=== PATIENT | male | born 1945 | race Caucasian/White ===

== ENCOUNTER 2016-06-17 22:17 | Emergency (ER) | payer MEDICARE ==
[~2016-06-17] VITALS: Ht 172.7 cm; Wt 90.0 kg
[2016-06-17 22:19] VITALS: BP 130/73; PULSE 81; RESP 18; TEMP 97.6; O2SAT 94
[2016-06-17] MEDS ORDERED: DOXY1CAP74 PO (22:29)
[2016-06-17] MEDS ORDERED: LOSA50TA PO (22:29)
[2016-06-17] MEDS ORDERED: CARV12.5 PO (22:29)
[2016-06-17] MEDS ORDERED: ASPI1TAB69 PO (22:29)
[2016-06-17 22:51] VITALS: RESP 20; O2SAT 96
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
[2016-06-17] MEDS ORDERED: SODIUM CHLORIDE 0.9% FLUSH 5 ML FLUSH IVF PRN (23:00)
[2016-06-17] MEDS ORDERED: RESP: LIDOCAINE HCL 4% PF 5 ML NEB NEB ONE (23:00)
[2016-06-17] MEDS ORDERED: methylPREDNISolone SOD SUCC 125 MG/2 ML VIAL IVP ONE (23:00)
--- NOTE | 2016-06-17 23:12 | RADRPT ---
EXAM DATE/TIME: 06/17/2016 22:56 [facility] COMPARISON: No previous studies available for comparison. INDICATIONS : Cough, shortness of breath for 1 month MEDICAL HISTORY : None. SURGICAL HISTORY : None. ENCOUNTER: Initial ACUITY: 1 month PAIN SCORE: 0/10 LOCATION: Bilateral chest FINDINGS: A single view of the chest demonstrates the lungs to be symmetrically aerated without evidence of mas s, infiltrate or effusion. The cardiomediastinal contours are unremarkable. Osseous structures are intact. CONCLUSION: No evidence of acute cardiopulmonary disease. Navid Rapp MD on June 17, 2016 at 23:09 Board Certified Radiologist. This report was verified electronically.
[2016-06-17 23:39] LABS: AUTOMATED NEUTROPHIL # 7.9 TH/MM3 (1.8-7.7); BASOPHIL # 0.1 TH/MM3 (0-0.2); BASOPHIL % 0.5 % (0.0-2.0); EOSINOPHIL # 0.5 TH/MM3 (0-0.4); EOSINOPHIL % 4.4 % (0.0-4.0); HEMO FLAGS DIFF FINAL; MEAN CELL VOLUME 85.1 FL (80.0-100.0); MEAN CORPUSCULAR HEMOGLOBIN 28.2 PG (27.0-34.0); MEAN CORPUSCULAR HGB CONC 33.2 % (32.0-36.0); MONO % 6.4 % (0.0-8.0); NEUT % 70.7 % (16.0-70.0); PLATELET COUNT 205 TH/MM3 (150-450); RED CELL DISTRIBUTION WIDTH 13.2 % (11.6-17.2); WHITE BLOOD COUNT 11.1 TH/MM3 (4.0-11.0)
[2016-06-17] MEDS: RESP: ALBUTEROL 2.5 MG/IPRATROPIUM 0.5 MG NEB (SCH) INH ×2 (23:41→23:43)
[2016-06-17 23:42] VITALS: O2SAT 96
[2016-06-18] MEDS ORDERED: PRED-503 PO (00:29)
[2016-06-18] MEDS ORDERED: ALBU0.08 NEB (00:29)
[2016-06-18] MEDS ORDERED: GUAI100S5 PO (00:29)
[2016-06-18] MEDS ORDERED: VENTAER INH (00:29)
[2016-06-18 01:29] LABS: ALT (GPT) 24 U/L (12-78); ANION GAP 7 MEQ/L (5-15); AST (GOT) 16 U/L (15-37); BLOOD UREA NITROGEN 13 MG/DL (7-18); CHLORIDE 104 MEQ/L (98-107); GLOMERULAR FILTRATION RATE 82 ML/MIN (>89); MAGNESIUM 2.4 MG/DL (1.5-2.5); SODIUM (NA) 140 MEQ/L (136-145)
[2016-06-18 01:33] LABS: ALKALINE PHOSPHATASE 117 U/L (45-117); TOTAL BILIRUBIN ADULT 0.4 MG/DL (0.2-1.0)
[2016-06-18 01:35] LABS: CREATINE KINASE 50 U/L (39-308)
[2016-06-18] MEDS ORDERED: HYDROcodone 5 MG/HOMATROPINE 1.5 MG SYRUP 5 ML CUP PO ONE (01:45)
[2016-06-18 01:46] VITALS: BP 141/68; TEMP 98.9
--- NOTE | 2016-06-19 06:57 | EKG ---
Date Performed: 06/17/2016 Time Performed: 23:06:51 PTAGE: 71 years EKG: Sinus rhythm NORMAL ECG NO PREVIOUS TRACING DOCTOR: Giovani Chahal Interpretating Date/Time 06/19/2016 06:55:00
== END 2016-06-18 01:47 | disposition home or self-care (01) ==
LOC: NEPB 22:17
DX: J44.0 Chronic obstructive pulmonary disease with (acute) lower respiratory infection (principal); J20.9 Acute bronchitis, unspecified; I10 Essential (primary) hypertension; R06.02 Shortness of breath; Z87.891 Personal history of nicotine dependence; Z79.899 Other long term (current) drug therapy
CPT/HCPCS: 71010; 80053; 82550; 83735; 83880; 84484; 85025; 93005; 94640; 94664; 96374; 99284; J2930